=== PATIENT | female | born 1970 | race Two or more races ===

== ENCOUNTER 2021-07-02 12:27 | Emergency (ER) | payer BC ==
[~2021-07-02] VITALS: Ht 157.5 cm; Wt 61.0 kg
[2021-07-02] MEDS ORDERED: IBUPROFEN 600MG TABLET PO ONE (13:45)
[2021-07-02 14:04] VITALS: BP 132/76
== END 2021-07-02 15:36 | disposition home or self-care (01) ==
LOC: ER 12:27
DX: S09.8XXA Other specified injuries of head, initial encounter (principal); W01.0XXA Fall on same level from slipping, tripping and stumbling without subsequent striking against object, initial encounter; Y93.89 Activity, other specified; Y92.9 Unspecified place or not applicable
CPT/HCPCS: 81025; 99284

== ENCOUNTER 2025-09-10 11:18 | Inpatient (IN) | payer BC, MEDICAID ==
[~2025-09-10] VITALS: Ht 157.5 cm; Wt 59.0 kg
[2025-09-10 11:29] VITALS: O2SAT 99
[2025-09-10] MEDS: MORPHINE SULFATE 4 MG/ML INJ (FOR IV/IM USE) IV ONE (13:59)
[2025-09-10] MEDS: ONDANSETRON HCL 4MG/2ML INJ IV ONE (13:59)
[2025-09-10 14:50] LABS: BASOPHILS % 0.5 % (0.0-2.0); EOSINOPHILS % 1.0 % (0.0-5.0); HEMATOCRIT. 43.3 % (36.0-48.0); HEMOGLOBIN. 14.5 g/dL (12.0-16.0); LYMPHOCYTES % 25.9 % (20.0-50.0); MEAN PLATELET VOLUME 8.7 fl (7.4-10.4); MONOCYTES % 5.8 % (2.0-8.0); NEUTROPHILS % 66.8 % (40.0-76.0); PLATELET 267 x1000/uL (130-400); RED BLOOD CELL COUNT 4.63 mill/uL (4.2-5.4); RED CELL DISTRIBUTION WIDTH 13.6 % (11.6-14.6)
[2025-09-10 15:00] LABS: INR 1.0
[2025-09-10 15:13] LABS: CREATININE 0.8 mg/dL (0.6-1.0); UREA NITROGEN BLOOD 26 mg/dL (9-23)
[2025-09-10 15:15] LABS: ASPARTATE AMINOTRANSFERASE 14 IU/L (<34); BILIRUBIN TOTAL 0.6 mg/dL (0.1-1.0); PROTEIN TOTAL 6.9 g/dL (6.0-8.3)
[2025-09-10 15:25] LABS: HCG SCREEN NEGATIVE
[2025-09-10] MEDS ORDERED: GUAIFENESIN 200MG/10ML SUGAR FREE UDC PO PRN (16:15)
[2025-09-10] MEDS ORDERED: ACETAMINOPHEN 325MG TABLET PO PRN (16:15)
[2025-09-10] MEDS ORDERED: NA PHOS,M-B/NA PHOS,DI-BA ENEMA 118ML PR PRN (16:15)
[2025-09-10] MEDS ORDERED: MAGNESIUM/ALUMINUM HYDROXIDE/SIMETHICONE 30ML UDC PO PRN (16:15)
[2025-09-10] MEDS ORDERED: MORPHINE SULFATE 2 MG/ML INJ (NOT FOR IM USE) IV PRN (16:15)
[2025-09-10] MEDS ORDERED: CLONIDINE 0.1MG TABLET PO PRN (16:15)
[2025-09-10] MEDS ORDERED: IPRATROPIUM/ALBUTEROL 0.5-3(2.5)MG/3ML NEB HHN PRN (16:15)
[2025-09-10] MEDS ORDERED: DOCUSATE SODIUM 100MG CAPSULE PO PRN (16:15)
[2025-09-10] MEDS ORDERED: DEXTROSE 50% WATER 50ML SYRINGE IV PRN (16:15)
[2025-09-10] MEDS ORDERED: NALOXONE HCL 0.4MG/ML VIAL IV PRN (16:45)
[2025-09-10] MEDS: BLOOD SUGAR DIAGNOSTIC STRIP TEST SCH (21:00)
[2025-09-10] MEDS: PANTOPRAZOLE SODIUM 40 MG/VIAL IV SCH (21:58)
[2025-09-10] MEDS: INSULIN LISPRO 100 UNITS/ML SUBCUT SCH (21:59)
[2025-09-10] MEDS: DEXT 5%/0.45% NACL 1000ML 1,000 ML IV SCH (22:02)
[2025-09-10 22:24] LABS: INR 1.0
[2025-09-10 22:37] LABS: TRIGLYCERIDE 126 mg/dL (0-150)
[2025-09-10 22:38] LABS: LDL CHOLESTEROL 110 mg/dL (5-100)
[2025-09-10 22:39] LABS: PHOSPHORUS 3.7 mg/dL (2.5-4.9)
[2025-09-10 22:42] LABS: T4 FREE 1.38 ng/dL (0.89-1.76)
[2025-09-10 22:48] LABS: TROPONIN I HIGH SENSITIVITY 14 ng/L (3.0-34)
[2025-09-10] MEDS: ACETAMINOPHEN 325MG TABLET PO PRN (23:53)
[2025-09-10 23:56] LABS: *AMPHETAMINES SCREEN URINE NEGATIVE (NEGATIVE); *BENZODIAZEPINES SCREEN URINE NEGATIVE (NEGATIVE); CLARITY URINE CLOUDY (CLEAR); COLOR URINE YELLOW (YELLOW); PH URINE 7.5 (4.5-8.0); SPECIFIC GRAVITY URINE 1.013 (1.005-1.030)
[2025-09-10 23:57] LABS: *BARBITURATES SCREEN URINE NEGATIVE (NEGATIVE); *COCAINE SCREEN URINE NEGATIVE (NEGATIVE); CANNABINOID URINE SCREEN NEGATIVE (NEGATIVE); ECSTASY MDMA SCREEN URINE NEGATIVE (NEGATIVE); GLUCOSE URINE NEGATIVE (NEGATIVE); KETONES URINE NEGATIVE (NEGATIVE); LEUKOCYTE ESTERASE URINE TRACE (NEGATIVE); METHADONE URINE SCREEN NEGATIVE (NEGATIVE); NITRITE URINE NEGATIVE (NEGATIVE); OCCULT BLOOD URINE NEGATIVE (NEGATIVE); OPIATES URINE SCREEN PRESUMPTIVE POSITIVE (NEGATIVE); PHENCYCLIDINE URINE SCREEN NEGATIVE (NEGATIVE); PROTEIN URINE NEGATIVE (NEGATIVE); UROBILINOGEN URINE 0.2 E.U./dL (0.2-1.0)
[2025-09-11] VITALS (49 sets, daily range): BP systolic 62–128; BP diastolic 37–84; PULSE 52–89; RESP 0–22; TEMP 36.4–36.7516; O2SAT 99–100
[2025-09-11] MEDS ORDERED: DEXT 5%/0.45% NACL 1000ML 1,000 ML IV SCH
[2025-09-11 00:54] LABS: BACTERIA URINE TRACE; SQUAMOUS EPITHELIAL CELL URINE 1+ /lpf (RARE/1+); WBC URINE 0-2 /hpf (0-2)
[2025-09-11 00:55] LABS: RBC URINE NONE SEEN /hpf (0-2)
[2025-09-11] MEDS ORDERED: ROCURONIUM BROMIDE 10MG/ML VIAL 5ML IV ONE (06:47)
[2025-09-11] MEDS ORDERED: MIDAZOLAM HCL 2 MG/2 ML VIAL ONE (06:47)
[2025-09-11] MEDS ORDERED: ONDANSETRON HCL 4MG/2ML INJ ONE (06:47)
[2025-09-11] MEDS ORDERED: PROPOFOL 200MG/20ML VIAL IV ONE (06:47)
[2025-09-11] MEDS ORDERED: DEXAMETHASONE 4MG/ML 1ML VIAL ONE (06:47)
[2025-09-11] MEDS ORDERED: FENTANYL CITRATE/PF 50MCG/ML 2ML VIAL ONE (06:47)
[2025-09-11] MEDS ORDERED: CEFAZOLIN SODIUM 1000MG/VIAL ONE (07:05)
[2025-09-11] MEDS ORDERED: SUCCINYLCHOLINE CHLORIDE 200MG/10ML IV ONE (07:05)
[2025-09-11 07:08] LABS: CREATININE 0.8 mg/dL (0.6-1.0)
[2025-09-11 07:10] LABS: UREA NITROGEN BLOOD 18 mg/dL (9-23)
[2025-09-11] MEDS ORDERED: HYDROMORPHONE HCL/PF 2MG/ML INJ ONE ×2 (08:17→09:17)
[2025-09-11] MEDS ORDERED: NEOSTIGMINE METHYLSULFATE 1MG/ML 10 ML VIAL ONE (08:57)
[2025-09-11] MEDS ORDERED: THROMBIN (BOVINE) 5000 UNITS/VIAL TOP ONE (08:58)
[2025-09-11] MEDS ORDERED: GLYCOPYRROLATE 0.2 MG/ML 2ML VIAL ONE (09:36)
[2025-09-11] MEDS ORDERED: NICARDIPINE 100 MG in SODIUM CHLORIDE 0.9% 60 ML IV PRN (09:45)
[2025-09-11] MEDS: DEXT 5%/LACTATED RINGERS 1,000 ML IV SCH (10:55)
[2025-09-11] MEDS: ONDANSETRON HCL 4MG/2ML INJ IV PRN (11:33)
[2025-09-11 13:09] LABS: TROPONIN I HIGH SENSITIVITY 15 ng/L (3.0-34)
[2025-09-11] MEDS ORDERED: CEFAZOLIN SODIUM 1000MG/VIAL IV SCH (14:00)
[2025-09-11] MEDS: CEFAZOLIN 1000MG PREMIX 50ML IV SCH (14:23)
[2025-09-11] MEDS: HYDROCODONE/ACETAMINOPHEN 5/325MG TABLET PO PRN (14:23)
[2025-09-11 16:02] LABS: HEMATOCRIT. 35.2 % (36.0-48.0); HEMOGLOBIN. 11.7 g/dL (12.0-16.0); MEAN PLATELET VOLUME 8.4 fl (7.4-10.4); PLATELET 255 x1000/uL (130-400); RED BLOOD CELL COUNT 3.75 mill/uL (4.2-5.4); RED CELL DISTRIBUTION WIDTH 13.3 % (11.6-14.6)
[2025-09-11 16:06] LABS: ADD RBC MORPHOLOGY YES
[2025-09-11] MEDS ORDERED: ONDANSETRON HCL 4MG/2ML INJ IV PRN ×2 (16:45→17:45)
[2025-09-11 19:21] LABS: BAND% 2.0 % (1.0-6.0); LYMPHOCYTES % MANUAL 5.0 % (20.0-60.0); MONOCYTES % MANUAL 4.0 % (2.0-8.0); NEUTROPHILS % MANUAL 89.0 % (45.0-75.0); PLATELET ESTIMATE NORMAL
[2025-09-11] MEDS: MORPHINE SULFATE 4 MG/ML INJ (FOR IV/IM USE) IV PRN (21:38)
[2025-09-12] VITALS (60 sets, daily range): BP systolic 85–119; BP diastolic 40–69; PULSE 50–88; RESP 0–25; TEMP 36.4–36.7; O2SAT 95–100
[2025-09-12 05:11] LABS: BASOPHILS % 0.1 % (0.0-2.0); EOSINOPHILS % 0.0 % (0.0-5.0); HEMATOCRIT. 31.3 % (36.0-48.0); HEMOGLOBIN. 10.1 g/dL (12.0-16.0); LYMPHOCYTES % 11.6 % (20.0-50.0); MEAN PLATELET VOLUME 9.0 fl (7.4-10.4); MONOCYTES % 5.8 % (2.0-8.0); NEUTROPHILS % 82.5 % (40.0-76.0); PLATELET 228 x1000/uL (130-400); RED BLOOD CELL COUNT 3.28 mill/uL (4.2-5.4); RED CELL DISTRIBUTION WIDTH 13.2 % (11.6-14.6)
[2025-09-12 05:33] LABS: CREATININE 0.8 mg/dL (0.6-1.0); UREA NITROGEN BLOOD 9 mg/dL (9-23)
[2025-09-12 05:35] LABS: PHOSPHORUS 3.0 mg/dL (2.5-4.9)
[2025-09-12] MEDS ORDERED: SODIUM CHLORIDE 0.9% 1,000 ML IV NR (16:52)
[2025-09-12] MEDS: SODIUM CHLORIDE 0.9% 1,000 ML IV SCH (17:32)
[2025-09-13] VITALS (28 sets, daily range): BP systolic 92–125; BP diastolic 40–78; PULSE 49–80; RESP 10–20; TEMP 36–36.8; O2SAT 96–100
[2025-09-13 06:29] LABS: BASOPHILS % 0.3 % (0.0-2.0); EOSINOPHILS % 1.4 % (0.0-5.0); HEMATOCRIT. 30.5 % (36.0-48.0); HEMOGLOBIN. 10.1 g/dL (12.0-16.0); LYMPHOCYTES % 32.7 % (20.0-50.0); MEAN PLATELET VOLUME 8.6 fl (7.4-10.4); MONOCYTES % 6.9 % (2.0-8.0); NEUTROPHILS % 58.7 % (40.0-76.0); PLATELET 217 x1000/uL (130-400); RED BLOOD CELL COUNT 3.23 mill/uL (4.2-5.4); RED CELL DISTRIBUTION WIDTH 13.4 % (11.6-14.6)
[2025-09-13 06:39] LABS: CREATININE 0.9 mg/dL (0.6-1.0)
[2025-09-13 06:40] LABS: UREA NITROGEN BLOOD 9 mg/dL (9-23)
[2025-09-13 06:42] LABS: PHOSPHORUS 2.5 mg/dL (2.5-4.9)
[2025-09-13] MEDS: SODIUM CHLORIDE 0.9% 1,000 ML IV ONE ×2 (11:00→17:52)
[2025-09-13] MEDS: MORPHINE SULFATE 4 MG/ML INJ (FOR IV/IM USE) IV PRN (21:18)
[2025-09-14 06:56] LABS: PLATELET 212 x1000/uL (130-400); RED BLOOD CELL COUNT 3.14 mill/uL (4.2-5.4); RED CELL DISTRIBUTION WIDTH 13.4 % (11.6-14.6)
[2025-09-14 06:59] LABS: CREATININE 0.7 mg/dL (0.6-1.0); UREA NITROGEN BLOOD 11 mg/dL (9-23)
[2025-09-14 07:01] LABS: PHOSPHORUS 3.1 mg/dL (2.5-4.9)
[2025-09-14 07:29] LABS: TROPONIN I HIGH SENSITIVITY 16 ng/L (3.0-34)
[2025-09-14 08:00] VITALS: BP 106/47; PULSE 63; RESP 18; TEMP 36.5; O2SAT 98
[2025-09-14 12:00] VITALS: BP 102/56; PULSE 61; RESP 18; TEMP 36.5; O2SAT 100
[2025-09-14 15:07] VITALS: BP 102/56; PULSE 61; RESP 18; TEMP 97.7
[2025-09-14] MEDS ORDERED: CALCIUM GLUCONATE 100MG/ML 10ML VIAL IV NR (19:30)
== END 2025-09-14 15:26 | disposition home or self-care (01) | DRG 304 ==
LOC: ER 11:18 → EDBEDREQ 16:16 → EDBEDREQTM 16:16 → 8EST 17:22 → MICUSO 09-11 10:14 → 6EST 09-13 04:50
PROVIDERS: ADMIT Internal Medicine; ATTEND Internal Medicine
PROC: 0SG0071 Fusion of Lumbar Vertebral Joint with Autologous Tissue Substitute, Posterior Approach, Posterior Column, Open Approach (ICD-10-PCS; principal; 2025-09-11)
PROC: 01NB0ZZ Release Lumbar Nerve, Open Approach (ICD-10-PCS; 2025-09-11)
PROC: 0SB20ZZ Excision of Lumbar Vertebral Disc, Open Approach (ICD-10-PCS; 2025-09-11)
PROC: 4A11X4G Monitoring of Peripheral Nervous Electrical Activity, Intraoperative, External Approach (ICD-10-PCS; 2025-09-11)
DX: M48.061 Spinal stenosis, lumbar region without neurogenic claudication (principal); G82.20 Paraplegia, unspecified; M47.816 Spondylosis without myelopathy or radiculopathy, lumbar region; D72.829 Elevated white blood cell count, unspecified; R73.03 Prediabetes; M43.16 Spondylolisthesis, lumbar region; E78.00 Pure hypercholesterolemia, unspecified; R00.1 Bradycardia, unspecified; I95.9 Hypotension, unspecified; Z88.2 Allergy status to sulfonamides; Z90.710 Acquired absence of both cervix and uterus
CPT/HCPCS: 36415; 71045; 72100; 72148; 76000; 80048; 80053; 80061; 80305; 81003; 82550; 82553; 82962; 83036; 83735; 83880; 84100; 84439; 84443; 84484; 84703; 85025; 85027; 86850; 86900; 93005; 93306; 93970; 96374; 96375; 97116; 97162; 97166; 97530; 97535; 99285; J0330; J0612; J0690; J1100; J1171; J1815; J2250; J2270; J2405; J2470; J2704; J2710; J3010; J3490; J7030; J7121; L0172; C1713